=== PATIENT | male | born 1950 ===

== ENCOUNTER 2017-10-25 11:26 | Inpatient (IN) | payer MEDICARE, OTHER ==
[2017-10-25] MEDS ORDERED: Sodium Chloride 0.9% 1,000 ML IV STA (12:14)
--- NOTE | 2017-10-25 12:14 | ED PDOC ---
HPI: Male Pain Time Seen by Provider: 10/25/17 11:44 Chief Complaint (Nursing): Back Pain Chief Complaint (Provider): Fever, unable to urinate properly History Per: Patient History/Exam Limitations: no limitations Onset/Duration Of Symptoms: Days (2) Current Symptoms Are (Timing): Still Present Quality Of Discomfort: Dull, Burning Additional Complaint(s): 67 yo male with HTN and DM presents with being unable to urinate properly and feeling feverish. PT did not take medications for fever and did not take temperature at home. PT states he feels like he has to urinate but only a few drops come out. Pt also with bilateral low back pain. Past Medical History Reviewed: Historical Data, Nursing Documentation, Vital Signs Vital Signs: Last Vital Signs Temp 100.6 F H 10/25/17 11:29 Pulse 121 H 10/25/17 11:29 Resp 16 10/25/17 11:29 BP 172/71 H 10/25/17 11:29 Pulse Ox 96 10/25/17 11:29 - Medical History PMH: Diabetes, HTN - Surgical History Surgical History: No Surg Hx - Family History Family History: States: Unknown Family Hx - Living Arrangements Living Arrangements: With Family - Social History Current smoker - smoking cessation education provided: No Alcohol: None Drugs: Denies - Home Medications Home Medications: Ambulatory Orders Medication Instructions Recorded Alendronate Sodium [Alendronate 35 mg PO TH 10/25/17 (Fosamax)] Allopurinol [Zyloprim] 200 mg PO DAILY 10/25/17 Aspirin [Ecotrin] 81 mg PO DAILY 10/25/17 Atorvastatin [Lipitor] 40 mg PO HS 10/25/17 Cholecalciferol 400 Intl Units 1 tab PO DAILY 10/25/17 [Vitamin D 400 Intl Units Tab] Econazole 1% [Spectazole Cr] 1 appl TOP BID 10/25/17 Ergocalciferol (Vitamin D2) 50,000 unit PO Q28D 10/25/17 [Vitamin D2] Furosemide [Lasix] 20 mg PO MWF 10/25/17 Insulin Glargine, Recombina 60 unit SC HS 10/25/17 [Lantus] Insulin Lispro Mix 75/25 [HumaLOG 60 unit SC QPM 10/25/17 Mix 75/25] Insulin Lispro Mix 75/25 [HumaLOG 70 unit SC QAM 10/25/17 Mix 75/25] Linagliptin [Tradjenta] 5 mg PO DAILY 10/25/17 Losartan/Hydrochlorothiazide 1 tab PO DAILY 10/25/17 [Hyzaar 100-25 Tablet] Paricalcitol [Zemplar] 1 mcg PO MWF 10/25/17 Sevelamer Carbonate [Renvela] 800 mg PO DIN 10/25/17 Sodium Bicarbonate Tab [Sodium 650 mg PO DAILY 10/25/17 Bicarbonate Tab] Tamsulosin [Flomax] 0.4 mg PO DAILY 10/25/17 Travoprost [Travatan Z] 1 drop EACHEYE HS 10/25/17 - Allergies Allergies/Adverse Reactions: Allergies Allergy/AdvReac Type Severity Reaction Status Date / Time No Known Allergies Allergy Verified 03/10/14 14:17 Review of Systems ROS Statement: Except As Marked, All Systems Reviewed And Found Negative Constitutional: Positive for: Fever, Chills, Malaise Gastrointestinal: Negative for: Nausea, Vomiting, Abdominal Pain Genitourinary Male: Positive for: Dysuria, Other Musculoskeletal: Positive for: Back Pain (Lower) Physical Exam - Reviewed Nursing Documentation Reviewed: Yes Vital Signs Reviewed: Yes - Physical Exam Appears: Positive for: Well, Non-toxic, No Acute Distress Head Exam: Positive for: ATRAUMATIC, NORMAL INSPECTION, NORMOCEPHALIC Skin: Positive for: Normal Color, Warm, DRY Eye Exam: Positive for: Normal appearance ENT: Positive for: Normal ENT Inspection Neck: Positive for: Normal, Painless ROM Cardiovascular/Chest: Positive for: Regular Rate, Rhythm Respiratory: Positive for: Normal Breath Sounds. Negative for: Accessory Muscle Use, Respiratory Distress Gastrointestinal/Abdominal: Positive for: Normal Exam, Soft. Negative for: Tenderness Back: Positive for: Normal Inspection. Negative for: L CVA Tenderness, R CVA Tenderness Extremity: Positive for: Normal ROM Neurologic/Psych: Positive for: Alert, Oriented - Laboratory Results Result Diagrams: 10/25/17 12:40 10/25/17 12:40 - ECG O2 Sat by Pulse Oximetry: 96 Medical Decision Making Medical Decision Making: Elevated wbc, elevated lactate. (+) UTI Case discussed with Dr. Murillo. Disposition - Clinical Impression Clinical Impression: UTI (urinary tract infection) - Patient ED Disposition Is Patient to be Admitted: Yes - Disposition Disposition Time: 13:23 Condition: STABLE
[2017-10-25 12:48] LABS: VENOUS BLOOD GAS PCO2 35 mmHg (40-60); VENOUS BLOOD GAS PO2 48 mm/Hg (30-55); VENOUS BLOOD PH 7.44 (7.32-7.43)
[2017-10-25 12:55] LABS: BASO % 0.2 % (0.0-2.0); EOS % 0.1 % (0.0-4.0); HEMOGLOBIN 11.7 g/dL (12.0-18.0); LYMPH # 1.1 K/uL (1.0-4.3); LYMPH % 5.4 % (20.0-40.0); MEAN CORPUSCULAR HEMOGLOBIN 31.6 pg (27.0-31.0); MEAN CORPUSCULAR HGB CONC 33.7 g/dL (33.0-37.0); MEAN PLATELET VOLUME 11.3 fl (7.2-11.7); MONO # 1.2 K/uL (0.0-0.8); MONO % 6.1 % (0.0-10.0); NEUT # 17.4 K/uL (1.8-7.0); NEUT % 88.2 % (50.0-75.0); PLATELET COUNT 149 K/uL (130-400); RBC 3.71 Mil/uL (4.40-5.90); RED CELL DISTRIBUTION WIDTH 14.1 % (11.5-14.5); WHITE BLOOD COUNT 19.7 K/uL (4.8-10.8)
[2017-10-25 12:58] LABS: SQUAMOUS EPITHIAL < 1 /hpf (0-5); URINE BACTERIA MOD (<OCC); URINE BILIRUBIN NEGATIVE (NEGATIVE); URINE BLOOD SMALL (NEGATIVE); URINE CLARITY CLEAR (Clear); URINE COLOR YELLOW (YELLOW); URINE GLUCOSE (UA) >=500 mg/dL (Normal); URINE LEUKOCYTE ESTERASE SMALL Leu/uL (Negative); URINE PROTEIN 100 mg/dL (NEGATIVE); URINE UROBILINOGEN 0.2-1.0 mg/dL (0.2-1.0)
[2017-10-25 13:14] LABS: ALBUMIN 3.8 g/dL (3.5-5.0); CALCIUM 8.7 mg/dL (8.4-10.2)
[2017-10-25] MEDS ORDERED: cefTRIAXone (Rocephin) 1 gm Inj ONE (13:26)
[2017-10-25] MEDS ORDERED: Oxycodone/Acetaminophen 5/325 mg Tab PO PRN (15:04)
[2017-10-25 15:16] LABS: LYMPHOCYTE 6 % (20-50); MONOCYTE 7 % (0-10); NEUTROPHIL 87 % (42-75); PLATELET ESTIMATE SLIGHTLY DECREASED (NORMAL); TOTAL CELLS COUNTED 100
[2017-10-25 15:17] LABS: ANISOCYTOSIS SLIGHT; LARGE PLATELETS PRESENT; OVALOCYTES SLIGHT; TEARDROP CELLS SLIGHT
[2017-10-25] MEDS ORDERED: Glucagon Recombinant 1 mg Inj IM PRN (15:19)
[2017-10-25] MEDS ORDERED: Dextrose 50% SYRINGE Inj (50 ml) IV PRN (15:19)
--- NOTE | 2017-10-25 16:52 | RAD ---
HISTORY: back pain, fever COMPARISON: No prior. TECHNIQUE: Chest PA and lateral FINDINGS: LUNGS: Small right lower lobe infiltrate versus fibrosis. PLEURA: No significant pleural effusion identified. No pneumothorax apparent. CARDIOVASCULAR: Normal. OSSEOUS STRUCTURES: No significant abnormalities. VISUALIZED UPPER ABDOMEN: Normal. OTHER FINDINGS: None. IMPRESSION: Small right lower lobe infiltrate versus fibrosis.
[2017-10-25] MEDS: Insulin Lispro (humaLOG) 100 Units/ml Inj SC SCH ×2 (18:28→21:51)
[2017-10-25] MEDS: Sodium Chloride 0.9% 1,000 ML IV SCH (18:59)
[2017-10-25] MEDS: Insulin Detemir 100 Units/ml Inj SC SCH (21:59)
[2017-10-26] MEDS: Sodium Chloride 0.9% 1,000 ML IV SCH ×3 (03:14→16:03)
[2017-10-26] MEDS: Insulin Lispro (humaLOG) 100 Units/ml Inj SC SCH ×4 (07:11→22:00)
[2017-10-26] MEDS: Enoxaparin 40 mg Syringe SC SCH (08:59)
[2017-10-26] MEDS ORDERED: Patient's Own Med (Losartan/Hydrochlorothiazide [Hyzaar 100-25 Tablet] 1 TAB) PO SCH (09:00)
--- NOTE | 2017-10-26 12:52 | HP ---
CHIEF COMPLAINT: Abdominal, back pain and difficulty urination. HISTORY OF PRESENT ILLNESS: This is a 67-year-old male known case of diabetes and hypertension, who was having abdominal pain, back pain, and difficulty urination for few days, so the patient was brought to the emergency room and was admitted for further management. REVIEW OF SYSTEMS: Positive for fever, difficulty urination, back pain, and abdominal pain. Review of systems otherwise is negative for headache, dizziness, syncope, loss of consciousness, chest pain, shortness of breath, nausea, vomiting, diarrhea, constipation, any new joint or extremity pain. Review of systems of all other organ system is unremarkable. PAST MEDICAL HISTORY: Significant for hypertension and diabetes. PAST SURGICAL HISTORY: Unremarkable. PERSONAL HISTORY: The patient is currently nonsmoker, nondrinker. No substance abuse. MEDICATIONS: The patient is on multiple medications, which is as per reconciliation sheet, which was reviewed and ordered. ALLERGIES: THE PATIENT IS NOT ALLERGIC TO ANY MEDICATIONS. FAMILY HISTORY: Noncontributory. PHYSICAL EXAMINATION: GENERAL: A well-built and well-nourished overweight 67-year-old male, in no acute distress. VITAL SIGNS: Temperature 99.1, the patient had very high fever before, pulse 99, respirations 20, blood pressure 148/80, and saturations 96%. HEENT: Pupils are reactive to light. No JVD. No thyromegaly. No lymphadenopathy. No nystagmus. Normocephalic and atraumatic skull. HEART: S1 and S2, normal and regular. No significant murmur, gallop or rub is heard. LUNGS: Shows good bilateral air exchange. No rales or rhonchi. ABDOMEN: Soft and nontender. No organomegaly. No fluid. Bowel sounds are plus and normal. The patient . EXTREMITIES: No edema. No calf swelling. No tenderness. No acute ischemia. CENTRAL NERVOUS SYSTEM: The patient is alert, awake, and oriented x3. There is no sign of any acute gross focal motor or sensory neurological deficits. DIAGNOSTIC DATA: Available diagnostic data reviewed. WBC 19.7, hemoglobin , hematocrit 34.9, and platelets 149,000. Lactic acid level is 2.3. Sodium 132, potassium 4.7, chloride 96, bicarb 18, BUN 29, and creatinine 1.5. SMA-12 otherwise is unremarkable. Blood sugars are very high 314, 250, 325, and 284. Chest x-ray is clear. ADMITTING IMPRESSION: Sepsis, type 2 diabetes with hyperglycemia, hypertension, obesity with body mass of index of 30, and urinary tract infection. PLAN: Plan as ordered. Case and plan discussed with the patient. Antoni Murillo MD
[2017-10-26] MEDS: Insulin Detemir 100 Units/ml Inj SC SCH (21:58)
[2017-10-27 08:18] VITALS: RESP 20
[2017-10-27] MEDS: Insulin Lispro (humaLOG) 100 Units/ml Inj SC SCH ×4 (08:21→21:54)
[2017-10-27] MEDS: Enoxaparin 40 mg Syringe SC SCH (08:32)
[2017-10-27] MEDS: Insulin Detemir 100 Units/ml Inj SC SCH ×2 (08:39→21:54)
[2017-10-27] MEDS: Ciprofloxacin 400mg/200ml D5W 400 MG/200 ML BAG IVPB SCH (21:53)
[2017-10-28 06:52] LABS: HEMOGLOBIN 11.1 g/dL (12.0-18.0); MEAN CELL VOLUME 92.3 fl (80.0-94.0); MEAN CORPUSCULAR HEMOGLOBIN 31.9 pg (27.0-31.0); MEAN CORPUSCULAR HGB CONC 34.6 g/dL (33.0-37.0); RBC 3.46 Mil/uL (4.40-5.90); RED CELL DISTRIBUTION WIDTH 13.6 % (11.5-14.5); WHITE BLOOD COUNT 7.7 K/uL (4.8-10.8)
--- NOTE | 2017-10-28 07:08 | CARD ---
APPROVED REPORT EKG Measurement Heart [id number] <Conclusion> Normal sinus rhythm Possible Left atrial enlargement Nonspecific T wave abnormality Abnormal ECG
[2017-10-28 07:44] VITALS: BP 139/76; PULSE 84; TEMP 98.4; O2SAT 98
[2017-10-28] MEDS ORDERED: Insulin Detemir 100 Units/ml Inj SC SCH ×2 (07:45→08:44)
[2017-10-28 08:12] LABS: ALB/GLOB RATIO 0.8 (1.0-2.1); ALBUMIN 3.2 g/dL (3.5-5.0); CALCIUM 8.4 mg/dL (8.4-10.2)
[2017-10-28] MEDS: Ciprofloxacin 400mg/200ml D5W 400 MG/200 ML BAG IVPB SCH (08:18)
[2017-10-28] MEDS: Enoxaparin 40 mg Syringe SC SCH (08:25)
[2017-10-28] MEDS: Insulin Lispro (humaLOG) 100 Units/ml Inj SC SCH (08:28)
--- NOTE | 2017-10-28 08:50 | PN ---
DATE: 10/27/2017 SUBJECTIVE: The patient is seen and examined. Interim events noted. The patient had high fever overnight. Currently, the patient feels okay. Denies any chest pain, shortness of breath or any urinary symptoms. Does have some back pain. PHYSICAL EXAMINATION: GENERAL: The patient is in no acute distress. VITAL SIGNS: Stable. HEART: S1 and S2, normal and regular. LUNGS: Good bilateral air exchange. ABDOMEN: Soft and nontender. EXTREMITIES: No edema. No calf swelling. No tenderness. No acute ischemia. CENTRAL NERVOUS SYSTEM: Essentially unchanged. BACK: Does not reveal any costovertebral angle tenderness. DIAGNOSTIC DATA: Available diagnostic data reviewed. The patient did have high fever of more than 101 overnight. Urine culture is positive, but ID and sensitivity is still pending. PLAN: Overall, the patient's general medical condition is stable, still febrile with urinary tract infection. Plan as ordered. Antoni Murillo MD
--- NOTE | 2017-10-28 14:15 | PN ---
DATE: 10/28/2017 SUBJECTIVE: The patient is seen and examined. Interim events noted. The patient feels much better. No chest pain. No shortness of breath. No abdominal pain. No urinary symptoms. PHYSICAL EXAMINATION: GENERAL: The patient is in no acute distress. VITAL SIGNS: Stable. HEART: S1 and S2, normal and regular. LUNGS: Good bilateral air exchange. ABDOMEN: Soft and nontender. EXTREMITIES: No edema. No calf swelling. No tenderness. No acute ischemia. CENTRAL NERVOUS SYSTEM: Exam is essentially unchanged. DIAGNOSTIC DATA: Available diagnostic data reviewed. Urine culture is positive and sensitive to . ASSESSMENT AND PLAN: Overall, the patient is clinically stable. Plan as ordered. Antoni Murillo MD
--- NOTE | 2017-10-28 23:20 | DS ---
HISTORY OF PRESENT ILLNESS: This is a 67-year-old male who was admitted with and was found to have urinary tract infection and sepsis and was treated with IV antibiotics. The patient responded to treatment very well. Urine culture showed sensitivity to Cipro. The patient was switched to oral antibiotics and was discharged home to be followed up by the primary care physician. Antoni Murillo MD
== END 2017-10-28 12:40 | disposition home or self-care (01) | DRG 872 ==
LOC: H.ER 11:26 → H.ERHOLD 13:30 → H.MEDSURG1 16:43
PROVIDERS: ADMIT Internal Medicine; ATTEND Internal Medicine
DX: A41.9 Sepsis, unspecified organism (principal); N39.0 Urinary tract infection, site not specified; E11.65 Type 2 diabetes mellitus with hyperglycemia; E66.9 Obesity, unspecified; Z68.30 Body mass index [BMI] 30.0-30.9, adult; I10 Essential (primary) hypertension

== ENCOUNTER 2018-06-23 12:31 | Emergency (ER) | payer MEDICARE, OTHER ==
[2018-06-23 12:50] VITALS: O2SAT 99
[2018-06-23] MEDS ORDERED: Albuterol-Ipratrop 3 mg / 0.5 (3 ml) UD IH STA (13:32)
--- NOTE | 2018-06-23 13:38 | ED PDOC ---
HPI: General Adult Time Seen by Provider: 06/23/18 13:24 Chief Complaint (Nursing): Cough, Cold, Congestion Chief Complaint (Provider): Cough, Cold, Congestion History Per: Patient History/Exam Limitations: no limitations Onset/Duration Of Symptoms: Days (x10) Current Symptoms Are (Timing): Still Present Additional Complaint(s): 68 year old male with a past medical history of diabetes who is presenting to the ED for evaluation of productive cough with yellow sputum onset 10 days ago. Patient denies any chest pain, fevers, or shortness of breath. He offers no other medical complaints at this time. PMD: Kian Rhodes Past Medical History Reviewed: Historical Data, Nursing Documentation, Vital Signs Vital Signs: Last Vital Signs Temp 98.8 F 06/23/18 12:47 Pulse 114 H 06/23/18 12:47 Resp 18 06/23/18 12:47 BP 131/64 06/23/18 12:47 Pulse Ox 99 06/23/18 12:47 - Medical History PMH: Diabetes, HTN Denies: Chronic Kidney Disease - Surgical History Surgical History: Hernia Repair - Family History Family History: States: Unknown Family Hx - Social History Current smoker - smoking cessation education provided: No Ex-Smoker (has not smoked in the last 12 months): Yes Alcohol: None Drugs: Denies - Home Medications Home Medications: Ambulatory Orders Medication Instructions Recorded Alendronate Sodium [Alendronate 35 mg PO TH 10/25/17 (Fosamax)] Allopurinol [Zyloprim] 200 mg PO DAILY 10/25/17 Aspirin [Ecotrin] 81 mg PO DAILY 10/25/17 Atorvastatin [Lipitor] 40 mg PO 10/25/17 Cholecalciferol 400 Intl Units 1 tab PO DAILY 10/25/17 [Vitamin D 400 Intl Units Tab] Econazole 1% [Spectazole Cr] 1 appl TOP BID 10/25/17 Ergocalciferol (Vitamin D2) 50,000 unit PO Q28D 10/25/17 [Vitamin D2] Furosemide [Lasix] 20 mg PO MWF 10/25/17 Insulin Glargine, Recombina 60 unit SC HS 10/25/17 [Lantus] Insulin Lispro Mix 75/25 [HumaLOG 60 unit SC QPM 10/25/17 Mix 75/25] Insulin Lispro Mix 75/25 [HumaLOG 70 unit SC QAM 10/25/17 Mix 75/25] Linagliptin [Tradjenta] 5 mg PO DAILY 10/25/17 Losartan/Hydrochlorothiazide 1 tab PO DAILY 10/25/17 [Hyzaar 100-25 Tablet] Paricalcitol [Zemplar] 1 mcg PO MWF 10/25/17 Sevelamer Carbonate [Renvela] 800 mg PO DIN 10/25/17 Sodium Bicarbonate Tab 650 mg PO DAILY 10/25/17 Tamsulosin [Flomax] 0.4 mg PO DAILY 10/25/17 Travoprost [Travatan Z] 1 drop EACHEYE HS 10/25/17 Ciprofloxacin HCl [Cipro] 500 mg PO Q12 #14 tablet 10/28/17 Albuterol HFA [Ventolin HFA 90 2 puff IH Q4H #1 puff 06/23/18 mcg/actuation (8 g)] Azithromycin [Zithromax] 250 mg PO DAILY #6 tab 06/23/18 Benzonatate [Tessalon Perle] 100 mg PO Q8 #10 capsule 06/23/18 - Allergies Allergies/Adverse Reactions: Allergies Allergy/AdvReac Type Severity Reaction Status Date / Time No Known Allergies Allergy Verified 03/10/14 14:17 Review of Systems ROS Statement: Except As Marked, All Systems Reviewed And Found Negative Constitutional: Negative for: Fever Cardiovascular: Negative for: Chest Pain Respiratory: Positive for: Cough, Sputum (yellow). Negative for: Shortness of Breath Physical Exam - Reviewed Nursing Documentation Reviewed: Yes Vital Signs Reviewed: Yes - Physical Exam Appears: Positive for: Non-toxic, No Acute Distress Head Exam: Positive for: ATRAUMATIC, NORMAL INSPECTION, NORMOCEPHALIC Skin: Positive for: Normal Color, Warm Eye Exam: Positive for: EOMI, Normal appearance, PERRL ENT: Positive for: Normal ENT Inspection Neck: Positive for: Normal Cardiovascular/Chest: Negative for: Murmur Respiratory: Positive for: Rhonchi (scattered), Wheezing (bilateral expiratory wheezing ), Respiratory Distress (mild ) Gastrointestinal/Abdominal: Positive for: Normal Exam, Soft. Negative for: Tenderness Extremity: Positive for: Normal ROM. Negative for: Deformity, Swelling Neurologic/Psych: Positive for: Alert, Oriented. Negative for: Motor/Sensory Deficits - ECG O2 Sat by Pulse Oximetry: 99 (RA) Pulse Ox Interpretation: Normal Medical Decision Making Medical Decision Making: Time: 13:33 Impression: rule out pneumonia, rule out bronchitis Plan: --Chest x-ray --Duoneb 3 ml INH --Peak Flow Pre/Post Tx Scribe Attestation: Documented by Ria Arellano, acting as a scribe for Rodney Oconnor MD. Provider Scribe Attestation: All medical record entries made by the Scribe were at my direction and personally dictated by me. I have reviewed the chart and agree that the record accurately reflects my personal performance of the history, physical exam, medical decision making, and the department course for this patient. I have also personally directed, reviewed, and agree with the discharge instructions and disposition. Disposition - Clinical Impression Clinical Impression: Bronchitis - Patient ED Disposition Is Patient to be Admitted: No Counseled Patient/Family Regarding: Studies Performed, Diagnosis, Need For Followup, Rx Given - Disposition Referrals: Kian Rhodes MD [Family Provider] - Disposition: Routine/Home Disposition Time: 15:36 Condition: FAIR Prescriptions: Albuterol HFA [Ventolin HFA 90 mcg/actuation (8 g)] 2 puff IH Q4H #1 puff Azithromycin [Zithromax] 250 mg PO DAILY #6 tab Benzonatate [Tessalon Perle] 100 mg PO Q8 #10 capsule Instructions: Acute Bronchitis Forms: [employer] (Iranian) Print Language: LIBERIAN
--- NOTE | 2018-06-23 14:13 | RAD ---
Date of service: 06/23/2018 HISTORY: Cough COMPARISON: 10/25/2017. TECHNIQUE: Chest PA and lateral FINDINGS: LINES AND TUBES: None. LUNG AND PLEURA: The lungs are hyperinflated and there is peribronchial thickening with chronic changes in both lungs. There is linear scarring in the left lung base no focal consolidation. No pleural effusion or pneumothorax. HEART AND MEDIASTINUM: The heart is not enlarged. No aortic atherosclerotic calcifications present. The hilar and mediastinal contours are within normal limits. SKELETAL STRUCTURES: The bony structures are within normal limits for the patient's age. VISUALIZED UPPER ABDOMEN: Normal. OTHER FINDINGS: None. IMPRESSION: No active pulmonary disease. COPD.
[2018-06-23 15:58] VITALS: BP 127/78; PULSE 79; RESP 19; TEMP 97.7
== END 2018-06-23 16:00 | disposition home or self-care (01) ==
LOC: H.ER 12:31
DX: J44.9 Chronic obstructive pulmonary disease, unspecified (principal); E11.9 Type 2 diabetes mellitus without complications; I10 Essential (primary) hypertension; Z79.4 Long term (current) use of insulin; Z87.891 Personal history of nicotine dependence

== ENCOUNTER 2018-08-05 17:04 | Observation (INO) | payer OTHER ==
[2018-08-05] MEDS ORDERED: Sodium Chloride 0.9% 1,000 ML IV STA (17:43)
[2018-08-05 18:32] LABS: BASO % 0.3 % (0.0-2.0); EOS # 0.1 K/uL (0.0-0.7); EOS % 2.5 % (0.0-4.0); HEMOGLOBIN 11.9 g/dL (12.0-18.0); LYMPH # 2.7 K/uL (1.0-4.3); LYMPH % 45.2 % (20.0-40.0); MEAN CELL VOLUME 95.3 fl (80.0-94.0); MEAN CORPUSCULAR HEMOGLOBIN 31.4 pg (27.0-31.0); MEAN PLATELET VOLUME 10.9 fl (7.2-11.7); MONO # 0.3 K/uL (0.0-0.8); MONO % 5.5 % (0.0-10.0); NEUT # 2.8 K/uL (1.8-7.0); NEUT % 46.5 % (50.0-75.0); NRBC % 0.1 % (0.0-0.0); RBC 3.79 Mil/uL (4.40-5.90); RED CELL DISTRIBUTION WIDTH 14.2 % (11.5-14.5); WHITE BLOOD COUNT 5.9 K/uL (4.8-10.8)
--- NOTE | 2018-08-05 18:34 | ED PDOC ---
Syncope/Near Syncope/Dizziness Time Seen by Provider: 08/05/18 17:29 Chief Complaint (Nursing): Syncope Chief Complaint (Provider): Syncope History Per: Patient History/Exam Limitations: no limitations Onset/Duration Of Symptoms: Unknown Current Symptoms Are (Timing): Better Additional History Per: Family (son) Additional Complaint(s): 68 year old male with PMHx of HTN and diabetes presents to the ED for an evaluation of syncopal episode today at the eye doctors office. As per son, patient was in the process of being injected in the vein to test for bleeding from the eye and patient fainted on the chair without any fall. Patient was unre sponsive and urinated. Patient is unsure of how long he passed out for and currently reports of nausea, blurry vision and weakness. Also reports of shortness of breath when walking and swollen feet. Otherwise, patient denies fever, chills, chest pain, cough, vomiting, abdominal pain, diarrhea, dysuria, frequency, incontinence, hematuria, headache, dizziness, head injury, numbness or tingling. PMD: Kian Rhodes Past Medical History Reviewed: Historical Data, Nursing Documentation, Vital Signs Vital Signs: Last Vital Signs Temp 98.0 F 08/05/18 17:06 Pulse 99 H 08/05/18 17:06 Resp 16 08/05/18 17:06 BP 145/66 08/05/18 17:06 Pulse Ox 100 08/05/18 17:06 - Medical History PMH: Diabetes, HTN Denies: Chronic Kidney Disease - Surgical History Surgical History: Hernia Repair - Family History Family History: States: Unknown Family Hx - Social History Current smoker - smoking cessation education provided: No Ex-Smoker (has not smoked in the last 12 months): No Drugs: Denies - Home Medications Home Medications: Ambulatory Orders Medication Instructions Recorded Alendronate Sodium [Alendronate 35 mg PO TH 10/25/17 (Fosamax)] Allopurinol [Zyloprim] 200 mg PO DAILY 10/25/17 Aspirin [Ecotrin] 81 mg PO DAILY 10/25/17 Atorvastatin [Lipitor] 40 mg PO HS 10/25/17 Cholecalciferol 400 Intl Units 1 tab PO DAILY 10/25/17 [Vitamin D 400 Intl Units Tab] Econazole 1% [Spectazole Cr] 1 appl TOP BID 10/25/17 Ergocalciferol (Vitamin D2) 50,000 unit PO Q28D 10/25/17 [Vitamin D2] Furosemide [Lasix] 20 mg PO MWF 10/25/17 Insulin Glargine, Recombina 60 unit SC HS 10/25/17 [Lantus] Insulin Lispro Mix 75/25 [HumaLOG 60 unit SC QPM 10/25/17 Mix 75/25] Insulin Lispro Mix 75/25 [HumaLOG 70 unit SC QAM 10/25/17 Mix 75/25] Linagliptin [Tradjenta] 5 mg PO DAILY 10/25/17 Losartan/Hydrochlorothiazide 1 tab PO DAILY 10/25/17 [Hyzaar 100-25 Tablet] Paricalcitol [Zemplar] 1 mcg PO MWF 10/25/17 Sevelamer Carbonate [Renvela] 800 mg PO DIN 10/25/17 Sodium Bicarbonate Tab 650 mg PO DAILY 10/25/17 Tamsulosin [Flomax] 0.4 mg PO DAILY 10/25/17 Travoprost [Travatan Z] 1 drop EACHEYE 10/25/17 Ciprofloxacin HCl [Cipro] 500 mg PO Q12 #14 tablet 10/28/17 Albuterol HFA [Ventolin HFA 90 2 puff IH Q4H #1 puff 06/23/18 mcg/actuation (8 g)] Azithromycin [Zithromax] 250 mg PO DAILY #6 tab 06/23/18 Benzonatate [Tessalon Perle] 100 mg PO Q8 #10 capsule 06/23/18 - Allergies Allergies/Adverse Reactions: Allergies Allergy/AdvReac Type Severity Reaction Status Date / Time No Known Allergies Allergy Verified 03/10/14 14:17 Review of Systems ROS Statement: Except As Marked, All Systems Reviewed And Found Negative Constitutional: Negative for: Fever, Chills Eyes: Positive for: Vision Change Cardiovascular: Negative for: Chest Pain Respiratory: Positive for: Shortness of Breath. Negative for: Cough Gastrointestinal: Positive for: Nausea. Negative for: Vomiting, Abdominal Pain, Diarrhea Genitourinary Male: Negative for: Dysuria, Frequency, Incontinence, Hematuria Neurological: Positive for: Weakness. Negative for: Numbness, Headache, Dizziness, Other (head injury) Physical Exam - Reviewed Nursing Documentation Reviewed: Yes Vital Signs Reviewed: Yes - Physical Exam Appears: Positive for: Non-toxic, No Acute Distress Head Exam: Positive for: ATRAUMATIC, NORMAL INSPECTION, NORMOCEPHALIC Skin: Positive for: Normal Color, Warm, Dry. Negative for: Rash Eye Exam: Positive for: EOMI, Normal appearance, PERRL ENT: Positive for: Normal ENT Inspection Neck: Positive for: Normal, Painless ROM Cardiovascular/Chest: Positive for: Regular Rate, Rhythm. Negative for: Murmur Respiratory: Positive for: Normal Breath Sounds. Negative for: Decreased Breath Sounds, Respiratory Distress Gastrointestinal/Abdominal: Positive for: Normal Exam, Soft. Negative for: Tend erness, Guarding, Rebound Back: Positive for: Normal Inspection. Negative for: L CVA Tenderness, R CVA Tenderness Extremity: Positive for: Normal ROM. Negative for: Tenderness, Pedal Edema, Deformity Neurologic/Psych: Positive for: Alert, Oriented (x3). Negative for: Motor/Sensory Deficits - Laboratory Results Result Diagrams: 08/05/18 18:18 08/05/18 18:18 - ECG O2 Sat by Pulse Oximetry: 100 (RA) Pulse Ox Interpretation: Normal - Radiology X-Ray: Interpreted by Me, Viewed By Me X-Ray Interpretation: No Acute Disease - Progress ED Course And Treament: 185: Dr. Mcdermott to fu on labs and imaging. Here with syncope. Medical Decision Making Medical Decision Making: Time: 1741 Plan: --Head w/o contrast CT --EKG --B-type natriuretic peptide --CMP --PTT --Prothrombin time [COAG] --Chest portable [RAD] --Normal saline 1000 mls/hr --Orthostatic Blood Pressure --Reevaluation Scribe Attestation: Documented by Raj Bernal acting as a scribe for Marty Barragan MD Provider Attestation: All medical record entries made by the Scribe were at my direction and per sonally dictated by me. I have reviewed the chart and agree that the record accurately reflects my personal performance of the history, physical exam, medical decision making, and the department course for this patient. I have also personally directed, reviewed, and agree with the discharge instructions and disposition. Disposition - Clinical Impression Clinical Impression: Syncope - Patient ED Disposition Is Patient to be Admitted: Transfer of Care - Disposition Disposition: Transfer of Care Disposition Time: 18:57 Condition: STABLE Forms: [employer] (Serbian) Patient Signed Over To: Sonido Mcdermott
[2018-08-05 18:39] LABS: PROTHROMBIN TIME 11.2 Seconds (9.8-13.1)
[2018-08-05 18:42] LABS: ALB/GLOB RATIO 0.9 (1.0-2.1); ALBUMIN 3.9 g/dL (3.5-5.0); BLOOD UREA NITROGEN 34 mg/dl (9-20); CALCIUM 9.5 mg/dL (8.4-10.2); GFR NON-AFRICAN AMERICAN 43
[2018-08-05 18:56] LABS: B-TYPE NATRIURETIC PEPTIDE 49.3 pg/ml (0-900)
--- NOTE | 2018-08-05 19:03 | CT ---
Date of service: 08/05/2018 PROCEDURE: CT HEAD WITHOUT CONTRAST. HISTORY: Headache COMPARISON: None available. TECHNIQUE: Axial computed tomography images were obtained through the head/brain without intravenous contrast. Radiation dose: Total exam DLP = 815.25 mGy-cm. This CT exam was performed using one or more of the following dose reduction techniques: Automated exposure control, adjustment of the mA and/or kV according to patient size, and/or use of iterative reconstruction technique. FINDINGS: HEMORRHAGE: No acute parenchymal, subarachnoid or extra-axial hemorrhage BRAIN: Suspect minimal chronic periventricular white matter ischemic changes. There are ill-defined low-attenuation changes seen in the subcortical white matter left posterior temporoparietal region.. These changes likely chronic however clinical correlation recommended to determine whether additional imaging such as MRI should is required. Mild to moderate generalized volume loss. VENTRICLES: No obstructive hydrocephalus CALVARIUM: Calvarium intact. PARANASAL SINUSES: Frontal sinuses are atretic. Remaining visualized paranasal sinuses are well-developed and clear. MASTOID AIR CELLS: Questionable fluid levels or mucoperiosteal inflammatory changes noted within multiple left-sided mastoid air cells. OTHER FINDINGS: Changes of bilateral cataract surgery are present. IMPRESSION: Suspect minimal chronic periventricular white matter ischemic changes. There are ill-defined low-attenuation changes seen in the subcortical white matter left posterior temporoparietal region.. These changes likely chronic however clinical correlation recommended to determine whether additional imaging such as MRI should is required. Mild to moderate generalized volume loss. Questionable fluid levels or mucoperiosteal inflammatory changes noted within multiple left-sided mastoid air cells.
--- NOTE | 2018-08-05 19:09 | ED PDOC ---
- Laboratory Results Result Diagrams: 08/05/18 18:18 08/05/18 18:18 Lab Results: PT 11.2 Seconds (9.8-13.1) 08/05/18 18:18 INR 1.0 08/05/18 18:18 APTT 28.0 Seconds (25.6-37.1) 08/05/18 18:18 Troponin I < 0.0120 ng/mL (0.00-0.120) 08/05/18 18:18 NT-Pro-B Natriuret Pep 49.3 pg/ml (0-900) 08/05/18 18:18 Total Bilirubin 0.5 mg/dl (0.2-1.3) 08/05/18 18:18 Total Protein 8.1 G/DL (6.3-8.2) 08/05/18 18:18 Albumin 3.9 g/dL (3.5-5.0) 08/05/18 18:18 Globulin 4.2 gm/dL (2.2-3.9) H 08/05/18 18:18 Albumin/Globulin Ratio 0.9 (1.0-2.1) L 08/05/18 18:18 - ECG O2 Sat by Pulse Oximetry: 100 (RA) Pulse Ox Interpretation: Normal Medical Decision Making Medical Decision Making: Time: 0700 Patient endorsed to me by Dr. Barragan pending CT scan and disposition. Scribe Attestation: Documented by Raj Bernal acting as a scribe for Sonido Mcdermott MD. Provider Attestation: All medical record entries made by the Scribe were at my direction and personally dictated by me. I have reviewed the chart and agree that the record accurately reflects my personal performance of the history, physical exam, medical decision making, and the department course for this patient. I have also personally directed, reviewed, and agree with the discharge instructions and disposition. Disposition - Clinical Impression Clinical Impression: Syncope - Disposition Condition: STABLE Forms: [employer] (Somali)
[2018-08-05 19:26] LABS: ALT/SGPT 63 U/L (21-72); AST/SGOT 53 U/L (17-59)
--- NOTE | 2018-08-05 19:30 | ED PDOC ---
- Laboratory Results Result Diagrams: 08/05/18 18:18 08/05/18 18:18 Lab Results: PT 11.2 Seconds (9.8-13.1) 08/05/18 18:18 INR 1.0 08/05/18 18:18 APTT 28.0 Seconds (25.6-37.1) 08/05/18 18:18 Troponin I < 0.0120 ng/mL (0.00-0.120) 08/05/18 18:18 NT-Pro-B Natriuret Pep 49.3 pg/ml (0-900) 08/05/18 18:18 Total Bilirubin 0.5 mg/dl (0.2-1.3) 08/05/18 18:18 AST 53 U/L (17-59) 08/05/18 18:18 ALT 63 U/L (21-72) 08/05/18 18:18 Alkaline Phosphatase 55 U/L (38-126) 08/05/18 18:18 Total Protein 8.1 G/DL (6.3-8.2) 08/05/18 18:18 Albumin 3.9 g/dL (3.5-5.0) 08/05/18 18:18 Globulin 4.2 gm/dL (2.2-3.9) H 08/05/18 18:18 Albumin/Globulin Ratio 0.9 (1.0-2.1) L 08/05/18 18:18 - ECG O2 Sat by Pulse Oximetry: 100 (RA) Pulse Ox Interpretation: Normal Medical Decision Making Medical Decision MakinPM --Patient endorsed to me by Dr. Barragan pending bloodwork and CT 715PM (Certified ob gyn physician assistant Lydia Altman was used for interpretation) --CT shows chronic changes --Patient re-evaluated, states he's feeling well, appears well, vitals stable, slight tachycardia at 100 bpm --Labs indicative of dehydration, patient being hydrated with normal saline currently --Case discussed with Dr. Rajput who accepts admission for OBS Tele --Condition: Fair Disposition - Clinical Impression Clinical Impression: Syncope - POA Present On Arrival: None - Disposition Disposition: Hospitalized as Observation Patient Disposition Time: 19:15 Condition: FAIR Forms: [employer] (Faroese)
[2018-08-05] MEDS ORDERED: Ergocalciferol 50,000 Intl Units Cap PO SCH (22:30)
[2018-08-05] MEDS: Insulin Detemir 100 Units/ml Inj SC SCH (23:26)
[2018-08-05] MEDS: Albuterol HFA 90 mcg/actuation (8 g) IH SCH (23:28)
[2018-08-06] MEDS: Insulin Lispro Mix 75/25 100 units/ml (HumaLog) 10ml SC SCH (08:47)
[2018-08-06] MEDS: Cholecalciferol 400 Intl Units Tab PO SCH (08:51)
[2018-08-06] MEDS ORDERED: ECONAZOLE TOP SCH (09:00)
--- NOTE | 2018-08-06 10:21 | CARD ---
APPROVED REPORT Date of service: 08/05/2018 EKG Measurement Heart [id number] ID [id number] <Conclusion> Normal sinus rhythm Normal ECG
[2018-08-06] MEDS: Albuterol HFA 90 mcg/actuation (8 g) IH SCH ×3 (10:30→19:14)
--- NOTE | 2018-08-06 10:31 | CARD ---
APPROVED REPORT Date of service: 08/06/2018 EXAM: Two-dimensional and M-mode echocardiogram with Doppler and color Doppler. Other Information Quality : GoodRhythm : Tachycardia INDICATION Syncope 2D DIMENSIONS IVSd1.06 (0.7-1.1cm)LVDd4.86 (3.9-5.9cm) LVOT Diameter2.05 (1.8-2.4cm)PWd1.24 (0.7-1.1cm) IVSs1.16 (0.8-1.2cm)LVDs2.71 (2.5-4.0cm) FS (%) 44.1 %PWs1.64 (0.8-1.2cm) M-Mode DIMENSIONS Left Atrium (MM)4.00 (2.5-4.0cm)IVSd1.09 (0.7-1.1cm) Aortic Root3.00 (2.2-3.7cm)LVDd5.50 (4.0-5.6cm) Aortic Cusp Exc.1.94 (1.5-2.0cm)PWd1.06 (0.7-1.1cm) IVSs1.47 cmFS (%) 47 % LVDs2.94 (2.0-3.8cm)PWs1.97 cm Aortic Valve AoV Peak Sfujoyqm820.3cm/sAoV VTI29.5cmAO Peak GR.11mmHg LVOT Peak Iozcfgpw871.8cm/sLVOT VTI20.68cmAO Mean GR.6mmHg BILL (VMAX)1.58ii7UUD (VTI)1.27cm2 Mitral Valve MV E Wdonpqug208.2cm/sMV DECEL DRXO601psMZ A Spkeewkg782.7cm/s MV MGG21kuZ/A ratio0.8MVA (PHT)5.53cm2 TDI Lateral E' Peak V10.10cm/sMedial E' Peak V9.13cm/sE/Lateral E'12.0 E/Medial E'13.3 LEFT VENTRICLE The left ventricle is normal size. There is normal left ventricular wall thickness. The left ventricular systolic function is normal. The estimated ejection fraction is 60-65% No regional wall motion abnormalities noted.. Transmitral Doppler flow pattern is Grade I-abnormal relaxation pattern. No left ventricle thrombus noted on this study. There is no ventricular septal defect visualized. There is no left ventricular aneurysm. There is no mass noted in the left ventricle. RIGHT VENTRICLE The right ventricle is normal size. There is normal right ventricular wall thickness. The right ventricular systolic function is normal. ATRIA The left atrium is borderline dilated. The right atrium size is normal. The interatrial septum is intact with no evidence for an atrial septal defect. AORTIC VALVE The aortic valve is normal in structure. No aortic regurgitation is present. There is no aortic valvular stenosis. There is no aortic valvular vegetation. MITRAL VALVE The mitral valve is normal in structure. There is no evidence of mitral valve prolapse. There is no mitral valve stenosis. There is no mitral valve regurgitation noted. TRICUSPID VALVE The tricuspid valve is normal in structure. There is trivial tricuspid valve regurgitation noted. There is no tricuspid valve prolapse or vegetation. There is no tricuspid valve stenosis. PULMONIC VALVE The pulmonary valve is normal in structure. There is no pulmonic valvular regurgitation. There is no pulmonic valvular stenosis. GREAT VESSELS The aortic root is normal in size. The ascending aorta is normal in size. The pulmonary artery is normal. The IVC is normal in size and collapses >50% with inspiration. PERICARDIAL EFFUSION There is no pericardial effusion. There is no pleural effusion. <Conclusion> The estimated ejection fraction is 60-65% Transmitral Doppler flow pattern is Grade I-abnormal relaxation pattern. The left atrium is borderline dilated. There is trivial tricuspid valve regurgitation noted.
--- NOTE | 2018-08-06 10:58 | RAD ---
Date of service: 08/05/2018 HISTORY: syncope COMPARISON: 06/23/2018 FINDINGS: LUNGS: There is interval increased opacity perceived at the right cardiophrenic angle is unclear if this is due to summation of the abdomen and projectional effects. However is not appreciated such on the prior studies. Consider follow-up chest x-ray frontal and lateral view when patient can cooperate. PLEURA: No significant pleural effusion identified, no pneumothorax apparent. CARDIOVASCULAR: No aortic atherosclerotic calcification present. Minimal cardiomegaly. No pulmonary vascular congestion. OSSEOUS STRUCTURES: No significant abnormalities. VISUALIZED UPPER ABDOMEN: Normal. OTHER FINDINGS: None. IMPRESSION: Interval increase opacity right cardiophrenic angle of unclear clinical significance-if any. Differential considerations are summation of soft tissues and projectional effects versus right inferomedial basal consolidation (infiltrate and/or atelectasis.). Recommend follow-up frontal and lateral chest x-ray views when patient can cooperate Comments: Study marked for PA review .
--- NOTE | 2018-08-06 11:37 | US ---
Date of service: 08/06/2018 PROCEDURE: Bilateral duplex Doppler carotid arterial ultrasound examination HISTORY: syncope COMPARISON: Not available TECHNIQUE: Bilateral duplex Doppler carotid arterial ultrasound examination was performed utilizing a linear array color Doppler transducer. FINDINGS: RIGHT CAROTID ARTERY: There is no significant atheromatous plaque identified. There is mild intimal thickening in the mid and distal CCA. Peak systolic velocity measurements: CCA: 90.6 centimeters/second ICA: 107.3 ICA/CCA peak systolic velocity ratio: 1.2. There is antegrade flow demonstrated in the right vertebral artery. There is mild spectral broadening in the ICA. LEFT CAROTID ARTERY: There is mild calcified atheromatous plaque in the mid carotid artery. There is no significant atheromatous plaque in the carotid bulb or ICA. There is moderate intimal thickening in the entire left CCA. Peak systolic velocity measurements: CCA: 102.5 centimeters/second ICA: 105.1 ICA/CCA peak systolic velocity ratio: 1.0 There is antegrade flow demonstrated in the left vertebral artery. IMPRESSION: No evidence of hemodynamically significant carotid arterial stenosis bilaterally. (Less than 15 percent stenosis by NASCET criteria ).
[2018-08-06 12:03] LABS: MEAN CELL VOLUME 93.9 fl (80.0-94.0); MEAN CORPUSCULAR HEMOGLOBIN 31.7 pg (27.0-31.0); MEAN CORPUSCULAR HGB CONC 33.8 g/dL (33.0-37.0); RBC 3.8 Mil/uL (4.40-5.90); RED CELL DISTRIBUTION WIDTH 14.1 % (11.5-14.5); WHITE BLOOD COUNT 6.9 K/uL (4.8-10.8)
--- NOTE | 2018-08-06 16:11 | CP.PCM.CON ---
History of Present Illness - History of Present Illness History of Present Illness: Neurology Consultation Note: Consult requested by Dr. Rajput Mr. Nix is a 68-year-old man with a past medical history of DM, HTN, HLD, who was having tests done and was having a needle inserted, when he suddenly lost consciousness, was found to have some convulsions and had urinary incontinence. When he regained consciousness, he was not confused or lethargic and knew where he was and was oriented. There was no tongue biting noted. This has never happened to him before. Review of Systems - Constitutional Constitutional: As Per HPI - EENT Eyes: absent: As Per HPI, Blind Spots, Blurred Vision, Change in Vision, Dec reased Night Vision, Diplopia, Discharge, Dry Eye, Exophthalmos, Floaters, Irritation, Itchy Eyes, Loss of Peripheral Vision, Pain, Photophobia, Requires Corrective Lenses, Sees Flashes, Spots in Vision, Tunnel Vision, Other Visual Disturbances, Loss of Vision, Other Ears: absent: As Per HPI, Decreased Hearing, Ear Discharge, Ear Pain, Tinnitus, Abnormal Hearing, Disequilibrium, Dizziness, Other Nose/Mouth/Throat: absent: As Per HPI, Epistaxis, Nasal Congestion, Nasal Discharge, Nasal Obstruction, Nasal Trauma, Nose Pain, Post Nasal Drip, Sinus Pain, Sinus Pressure, Bleeding Gums, Change in Voice, Dental Pain, Dry Mouth, Dysphagia, Halitosis, Hoarsness, Lip Swelling, Mouth Lesions, Mouth Pain, Odynophagia, Sore Throat, Throat Swelling, Tongue Swelling, Facial Pain, Neck Pain, Neck Mass, Other - Cardiovascular Cardiovascular: absent: As Per HPI, Acrocyanosis, Chest Pain, Chest Pain at Rest, Chest Pain with Activity, Claudication, Diaphoresis, Dyspnea, Dyspnea on Exertion, Edema, Irregular Heart Rhythm, Pain Radiating to Arm/Neck/Jaw, Leg Edema, Leg Ulcers, Lightheadedness, Orthopnea, Palpitations, Paroxysmal Nocturnal Dyspnea, Pedal Edema, Radiating Pain, Rapid Heart Rate, Slow Heart Rate, Syncope, Other - Respiratory Respiratory: absent: As Per HPI, Cough, Dyspnea, Hemoptysis, Dyspnea on Exertion, Wheezing, Snoring, Stridor, Pain on Inspiration, Chest Congestion, Excessive Mucous Production, Change in Mucous Color, Pain with Coughing, Other - Gastrointestinal Gastrointestinal: absent: As Per HPI, Abdominal Pain, Belching, Bloating, Change in Bowel Habits, Change in Stool Character, Coffee Ground Emesis, Constipation, Cramping, Diarrhea, Dyspepsia, Dysphagia, Early Satiety, Excessive Flatus, Fecal Incontinence, Heartburn, Hematemesis, Hematochezia, Loose Stools, Melena, Nausea, Odynophagia, Temesmus, Vomiting, Other - Musculoskeletal Musculoskeletal: absent: As Per HPI, Abnormal Gait, Arthralgias, Atrophy, Back Pain, Deformity, Joint Swelling, Limited Range of Motion, Loss of Height, Muscle Cramps, Muscle Weakness, Myalgias, Neck Pain, Numbness, Radiating Pain into Limb, Stiffness, Tingling, Other - Neurological Neurological: absent: As Per HPI, Abnormal Gait, Abnormal Hearing, Abnormal Movements, Abnormal Speech, Behavioral Changes, Burning Sensations, Confusion, Convulsions, Disequilibrium, Dizziness, Numbness, Focal Weakness, Frequent Falls, Headaches, Lack of Coordination, Loss of Vision, Memory Loss, Paresth esias, Radicular Pain, Restless Legs, Sensory Deficit, Syncope, Tingling, Tremor, Vertigo, Weakness, Other Visual Disturbances, Other - Psychiatric Psychiatric: absent: As Per HPI, Abnormal Sleep Pattern, Anhedonia, Anxiety, Auditory Hallucinations, Behavioral Changes, Change in Appetite, Change in Libido, Confusion, Depression, Difficulty Concentrating, Hallucinations, Homicidal Ideation, Hopelessness, Irritability, Memory Loss, Mood Swings, Panic Attacks, Paranoia, Suicidal Ideation, Visual Hallucinations, Tactile Hallucinations, Other - Endocrine Endocrine: absent: As Per HPI, Change in Body Appearance, Change in Libido, Cold Intolorance, Deepening of Voice, Excessive Sweating, Fatigue, Flushing, Heat Intolorance, Increase in Ring/Shoe/Hat Size, Palpitations, Polydipsia, Polyphagia, Polyuria, Other - Hematologic/Lymphatic Hematologic: absent: As Per HPI, Easy Bleeding, Easy Bruising, Lymphadenopathy, Other Past Patient History - Past Medical History & Family History Past Medical History?: Yes - Past Social History Smoking Status: Former Smoker - CARDIAC Hx Cardiac Disorders: Yes Hx Hypertension: Yes - PULMONARY Hx Respiratory Disorders: No Other/Comment: Prior heavy smoker- X 40 years, Stopped 4 years ago, 1 Pk/day - NEUROLOGICAL Hx Neurological Disorder: No - HEENT Hx HEENT Problems: No Other/Comment: Wears corrective lenses for reading - RENAL Hx Chronic Kidney Disease: No - ENDOCRINE/METABOLIC Hx Endocrine Disorders: Yes Hx Diabetes Mellitus Type 1: Yes - HEMATOLOGICAL/ONCOLOGICAL Hx Blood Disorders: No Hx AIDS: No Hx Human Immunodeficiency Virus (HIV): No - INTEGUMENTARY Hx Dermatological Problems: No - MUSCULOSKELETAL/RHEUMATOLOGICAL Hx Musculoskeletal Disorders: No Hx Falls: No Other/Comment: C/o Low back pain - GASTROINTESTINAL Hx Gastrointestinal Disorders: No - GENITOURINARY/GYNECOLOGICAL Hx Genitourinary Disorders: No - PSYCHIATRIC Hx Psychophysiologic Disorder: No Hx Substance Use: No - SURGICAL HISTORY Hx Surgeries: Yes Hx Eye Surgery: Yes Hx Herniorrhaphy: Yes (left inguinal) - ANESTHESIA Hx Anesthesia: Yes Hx Anesthesia Reactions: No Meds Allergies/Adverse Reactions: Allergies Allergy/AdvReac Type Severity Reaction Status Date / Time No Known Allergies Allergy Verified 08/05/18 19:05 - Medications Medications: Current Medications Albuterol (Ventolin Hfa 90 Mcg/Actuation (8 G)) 2 puff IH Q4H [facility] Last Admin: 08/05/18 23:28 Dose: Not Given Alendronate Sodium (Fosamax) 35 mg PO [facility] Allopurinol (Zyloprim) 200 mg PO DAILY [facility] Last Admin: 08/06/18 08:52 Dose: 200 mg Aspirin (Ecotrin) 81 mg PO DAILY [facility] Last Admin: 08/06/18 08:45 Dose: 81 mg Atorvastatin Calcium (Lipitor) 40 mg PO HS [facility] Last Admin: 08/05/18 23:27 Dose: Not Given Ergocalciferol (Drisdol 50,000 Intl Units Cap) 1 cap PO Q28D [facility] Furosemide (Lasix) 20 mg PO MWF [facility] Last Admin: 08/06/18 08:49 Dose: 20 mg Home Med (Econazole 1% [Spectazole Cr]) 1 appl TOP BID [facility] Home Med (Paricalcitol [Zemplar]) 1 mcg PO MWF [facility] Hydrochlorothiazide (Hydrodiuril) 25 mg PO DAILY [facility] Last Admin: 08/06/18 08:48 Dose: 25 mg Insulin Detemir (Levemir) 60 units SC HS [facility] Last Admin: 08/05/18 23:26 Dose: 60 units Insulin Lispro Protam/Lispro Human (Humalog Mix 75/25) 60 units SC QPM [facility] Insulin Lispro Protam/Lispro Human (Humalog Mix 75/25) 70 units SC QAM [facility] Last Admin: 08/06/18 08:47 Dose: 70 units Latanoprost (Xalatan Opht) 1 drop OU HS [facility] Losartan Potassium (Cozaar) 100 mg PO DAILY [facility] Last Admin: 08/06/18 08:44 Dose: 100 mg Sevelamer Carbonate (Renvela) 800 mg PO DIN [facility] Sitagliptin Phosphate (Januvia) 50 mg PO DAILY [facility] Last Admin: 08/06/18 08:49 Dose: 50 mg Sodium Bicarbonate (Sodium Bicarbonate Tab) 650 mg PO DAILY [facility] Last Admin: 08/06/18 08:50 Dose: 650 mg Tamsulosin HCl (Flomax) 0.4 mg PO DAILY [facility] Last Admin: 08/06/18 08:46 Dose: 0.4 mg Vitamin D (Vitamin D 400 Intl Units Tab) 400 intlu PO DAILY [facility] Last Admin: 08/06/18 08:51 Dose: 400 intlu Physical Exam - Constitutional Appears: Well - Head Exam Head Exam: ATRAUMATIC, NORMAL INSPECTION, NORMOCEPHALIC - Eye Exam Eye Exam: EOMI, Normal appearance, PERRL Pupil Exam: NORMAL ACCOMODATION, PERRL - ENT Exam ENT Exam: Mucous Membranes Moist, Normal Exam - Neck Exam Neck exam: Positive for: Normal Inspection - Respiratory Exam Respiratory Exam: Clear to Auscultation Bilateral, NORMAL BREATHING PATTERN - Cardiovascular Exam Cardiovascular Exam: REGULAR RHYTHM, +S1, +S2 - GI/Abdominal Exam GI & Abdominal Exam: Normal Bowel Sounds, Soft. absent: Tenderness - Extremities Exam Extremities exam: Positive for: normal inspection - Back Exam Back exam: NORMAL INSPECTION - Neurological Exam Neurological exam: Alert, CN II-XII Intact, Normal Gait, Oriented x3, Reflexes Normal - Psychiatric Exam Psychiatric exam: Normal Affect, Normal Mood - Skin Skin Exam: Dry, Intact, Normal Color, Warm Results - Vital Signs Recent Vital Signs: Last Vital Signs Temp 97.9 F 08/06/18 15:53 Pulse 93 H 08/06/18 15:53 Resp 20 08/06/18 15:53 BP 139/70 08/06/18 15:53 Pulse Ox 96 08/06/18 15:53 - Labs Result Diagrams: 08/06/18 11:55 08/06/18 11:55 Labs: Laboratory Results - last 24 hr 08/05/18 08/05/18 08/05/18 17:20 18:18 18:18 WBC 5.9 RBC 3.79 L Hgb 11.9 L Hct 36.1 MCV 95.3 H D MCH 31.4 H MCHC 33.0 RDW 14.2 Plt Count 183 MPV 10.9 Neut % (Auto) 46.5 L Lymph % (Auto) 45.2 H [place] % (Auto) 5.5 Eos % (Auto) 2.5 Baso % (Auto) 0.3 Neut # (Auto) 2.8 Lymph # (Auto) 2.7 [place] # (Auto) 0.3 Eos # (Auto) 0.1 Baso # (Auto) 0.0 PT INR APTT Sodium 141 Potassium 4.6 Chloride 105 Carbon Dioxide 23 Anion Gap 18 BUN 34 H Creatinine 1.6 H Est GFR ( Amer) 52 Est GFR (Non-Af Amer) 43 POC Glucose (mg/dL) 134 H Random Glucose 119 H Calcium 9.5 Total Bilirubin 0.5 AST 53 ALT 63 Alkaline Phosphatase 55 Troponin I < 0.0120 NT-Pro-B Natriuret Pep 49.3 Total Protein 8.1 Albumin 3.9 Globulin 4.2 H Albumin/Globulin Ratio 0.9 L 08/05/18 08/05/18 08/06/18 18:18 21:14 05:20 WBC RBC Hgb Hct MCV MCH MCHC RDW Plt Count MPV Neut % (Auto) Lymph % (Auto) [place] % (Auto) Eos % (Auto) Baso % (Auto) Neut # (Auto) Lymph # (Auto) [place] # (Auto) Eos # (Auto) Baso # (Auto) PT 11.2 INR 1.0 APTT 28.0 Sodium Potassium Chloride Carbon Dioxide Anion Gap BUN Creatinine Est GFR ( Amer) Est GFR (Non-Af Amer) POC Glucose (mg/dL) 147 H 220 H Random Glucose Calcium Total Bilirubin AST ALT Alkaline Phosphatase Troponin I NT-Pro-B Natriuret Pep Total Protein Albumin Globulin Albumin/Globulin Ratio 08/06/18 08/06/18 08/06/18 10:39 11:55 11:55 WBC 6.9 RBC 3.80 L Hgb 12.0 Hct 35.7 MCV 93.9 MCH 31.7 H MCHC 33.8 RDW 14.1 Plt Count 200 MPV Neut % (Auto) Lymph % (Auto) [place] % (Auto) Eos % (Auto) Baso % (Auto) Neut # (Auto) Lymph # (Auto) [place] # (Auto) Eos # (Auto) Baso # (Auto) PT INR APTT Sodium 140 Potassium 4.6 Chloride 101 Carbon Dioxide 23 Anion Gap 21 H BUN 31 H Creatinine 1.5 Est GFR ( Amer) 56 Est GFR (Non-Af Amer) 46 POC Glucose (mg/dL) 249 H Random Glucose 239 H Calcium 10.0 Total Bilirubin AST ALT Alkaline Phosphatase Troponin I NT-Pro-B Natriuret Pep Total Protein Albumin Globulin Albumin/Globulin Ratio Assessment & Plan (1) Syncope Assessment and Plan: Based on the description provided, the patient may have had a seizure. I recommend obtaining an MRI of the brain with and without contrast. I also recommend EEG for 1 hour for further evaluation. Continue cardiac work-up and telemetry. Thank you for this consultation. Status: Acute
[2018-08-06] MEDS ORDERED: Gadodiamide 287 MG/ML VIAL (15ML) IV ONE (17:29)
[2018-08-06] MEDS ORDERED: Insulin Lispro Mix 75/25 100 units/ml (HumaLog) 10ml SC SCH (18:00)
[2018-08-06 20:04] VITALS: RESP 18
[2018-08-06] MEDS ORDERED: Patient's Own Med (Travoprost [Travatan Z] 1 DROP) EACHEYE SCH (22:00)
[2018-08-06] MEDS ORDERED: Latanoprost 0.005% Opht SOUTION OU SCH (22:00)
[2018-08-06] MEDS: Insulin Detemir 100 Units/ml Inj SC SCH (22:01)
--- NOTE | 2018-08-07 01:06 | CP.PCM.HP ---
History of Present Illness - History of Present Illness History of Present Illness: HPI: 68 y/o male with a PMH of HTN and DM presented to the ED S/P syncopal episode. As per history, pt was at the doctors office receiving an injection when he suddenly passed out and became incontinent of urine. PMH: HTN, DM, hyperlipidemia. PSH: Eye surgery, inguinal heniorrhaphy. Social History: previous heavy smoker. Meds: See MAR. Allergies: NKDA. Present on Admission - Present on Admission Any Indicators Present on Admission: No Review of Systems - Review of Systems Review of Systems: reviewed and no additional remarkable complaints. Past Patient History - Past Medical History & Family History Past Medical History?: Yes - Past Social History Smoking Status: Former Smoker - CARDIAC Hx Cardiac Disorders: Yes Hx Hypertension: Yes - PULMONARY Hx Respiratory Disorders: No Other/Comment: Prior heavy smoker- X 40 years, Stopped 4 years ago, 1 Pk/day - NEUROLOGICAL Hx Neurological Disorder: No - HEENT Hx HEENT Problems: No Other/Comment: Wears corrective lenses for reading - RENAL Hx Chronic Kidney Disease: No - ENDOCRINE/METABOLIC Hx Endocrine Disorders: Yes Hx Diabetes Mellitus Type 1: Yes - HEMATOLOGICAL/ONCOLOGICAL Hx Blood Disorders: No Hx AIDS: No Hx Human Immunodeficiency Virus (HIV): No - INTEGUMENTARY Hx Dermatological Problems: No - MUSCULOSKELETAL/RHEUMATOLOGICAL Hx Musculoskeletal Disorders: No Hx Falls: No Other/Comment: C/o Low back pain - GASTROINTESTINAL Hx Gastrointestinal Disorders: No - GENITOURINARY/GYNECOLOGICAL Hx Genitourinary Disorders: No - PSYCHIATRIC Hx Psychophysiologic Disorder: No Hx Substance Use: No - SURGICAL HISTORY Hx Surgeries: Yes Hx Eye Surgery: Yes Hx Herniorrhaphy: Yes (left inguinal) - ANESTHESIA Hx Anesthesia: Yes Hx Anesthesia Reactions: No Meds Allergies/Adverse Reactions: Allergies Allergy/AdvReac Type Severity Reaction Status Date / Time No Known Allergies Allergy Verified 08/05/18 19:05 Physical Exam - Constitutional Appears: Well - Head Exam Head Exam: ATRAUMATIC, NORMAL INSPECTION, NORMOCEPHALIC - Eye Exam Eye Exam: EOMI, Normal appearance, PERRL Pupil Exam: NORMAL ACCOMODATION, PERRL - ENT Exam ENT Exam: Mucous Membranes Moist - Neck Exam Neck exam: Positive for: Normal Inspection - Respiratory Exam Respiratory Exam: Decreased Breath Sounds - Cardiovascular Exam Cardiovascular Exam: REGULAR RHYTHM, +S1, +S2 - GI/Abdominal Exam GI & Abdominal Exam: Normal Bowel Sounds, Soft - Extremities Exam Extremities exam: Positive for: normal capillary refill, pedal edema Additional comments: 1+ pedal edema - Back Exam Back exam: NORMAL INSPECTION - Neurological Exam Neurological exam: Alert, CN II-XII Intact, Normal Gait, Oriented x3 - Psychiatric Exam Psychiatric exam: Normal Affect, Normal Mood - Skin Skin Exam: Dry, Intact, Normal Color, Warm Results - Vital Signs Recent Vital Signs: Last Vital Signs Temp 98.5 F 08/07/18 00:25 Pulse 85 08/07/18 00:25 Resp 18 08/07/18 00:25 BP 122/65 08/07/18 00:25 Pulse Ox 98 08/07/18 00:25 - Labs Result Diagrams: 08/06/18 11:55 08/06/18 11:55 Labs: Laboratory Results - last 24 hr 08/06/18 08/06/18 08/06/18 05:20 10:39 11:55 WBC 6.9 RBC 3.80 L Hgb 12.0 Hct 35.7 MCV 93.9 MCH 31.7 H MCHC 33.8 RDW 14.1 Plt Count 200 Sodium Potassium Chloride Carbon Dioxide Anion Gap BUN Creatinine Est GFR ( Amer) Est GFR (Non-Af Amer) POC Glucose (mg/dL) 220 H 249 H Random Glucose Calcium 08/06/18 08/06/18 08/06/18 11:55 16:04 21:55 WBC RBC Hgb Hct MCV MCH MCHC RDW Plt Count Sodium 140 Potassium 4.6 Chloride 101 Carbon Dioxide 23 Anion Gap 21 H BUN 31 H Creatinine 1.5 Est GFR ( Amer) 56 Est GFR (Non-Af Amer) 46 POC Glucose (mg/dL) 101 131 H Random Glucose 239 H Calcium 10.0 - EKG Data EKG Interpreted by: Myself EKG shows normal: Sinus rhythm Rate: Normal Assessment & Plan (1) Syncope Assessment and Plan: Assessment/Impression/Major problems now: 1.) Syncope -ECHO and bilateral carotid ultrasound ordered. -Neurology and cardiology consults input appreciated. -consider seizure vs. syncope. -Head CT showed no CVA; mostly chronic ischemic changes. -neuro checks and cardiac monitoring ongoing. Status: Acute
--- NOTE | 2018-08-07 05:40 | CON ---
DATE: 08/06/2018 REASON FOR CONSULTATION: Syncopal episode. HISTORY OF PRESENT ILLNESS: History was obtained from the family and from the patient via computer programming manager. The patient is a 68-year-old male who has a history of hypertension and diabetes mellitus, who was seeing an center medical specialist, and after having eye drops to dilate his pupils and received unknown intravenous injection, and while in the waiting room, the patient was reported by the office staff to be shaky and slumped to the floor, was initially confused and had urinary incontinence. By the time, the family arrived to the emergency room, the ambulance was there to pick the patient up, and the patient was oriented and aware of what was going on. No prior similar episode, and NO KNOWN HISTORY OF ALLERGY TO EITHER FOOD OR MEDICINE. The patient is also being seen by a aligner typewriter, that the patient and the family do not recall his name, but unaware of any specific cardiac issue and no history of cardiac catheterization. There is no history of stroke in the past. SOCIAL HISTORY: Nonsmoker and nondrinker. and lives with his . MEDICATIONS: Aspirin 81 mg once a day, Fosamax 35 mg weekly; Flomax 0.4 mg daily; hydrochlorothiazide 25 mg once a day; Januvia 50 mg once a day; Lasix 20 mg Saturday, Saturday, and Saturday; Levemir 6 units subcutaneously at bedtime; Lipitor 40 mg once a day; Renvela 800 mg at dinnertime; vitamin D 400 international units orally daily; and Zyloprim 200 mg daily. REVIEW OF SYSTEMS: The patient had recent cataract surgery. He denies any history of heart attack or stroke in the past, and no known history of seizures. PHYSICAL EXAMINATION: GENERAL: The patient is an elderly male who does not appear to be in acute distress. VITAL SIGNS: Blood pressure 139/70, heart rate 93, temperature 97.9, respirations 20. HEENT: Normocephalic. CHEST: Clear. HEART: S1 and S2, regular. ABDOMEN: Soft. EXTREMITIES: No edema. LABORATORY DATA: Today's SMA-7: Sodium 140, potassium 4.6, chloride 101, CO2 of 23, glucose 139, BUN 31, creatinine 1.5. One set of troponin is negative. Today's hemoglobin and hematocrit, white count and platelets count are within normal limits. PT, PTT and INR are within normal limits. Head CT scan without contrast: I suspect minimal chronic periventricular white matter ischemic changes. Ill-defined low attenuation changes seen in the subcortical white matter of the left posterior temporoparietal region. These changes are likely chronic, however, clinical correlation recommended. [id number] generalized volume loss. . Echocardiographic study with normal ejection fraction, borderline dilated left atrium, trivial tricuspid insufficiency, and grade 1 abnormal relaxation pattern. Carotid Doppler: No evidence of hemodynamically significant carotid artery stenoses bilaterally. EKG revealed normal sinus rhythm at a rate of 96. ASSESSMENT: 1. Syncopal episode. 2. Rule out transient ischemic attack versus cerebrovascular accident. 3. Hypertension and diabetes mellitus. 4. Borderline renal insufficiency. 5. History of diabetic retinopathy. RECOMMENDATIONS: Continue Cozaar 100 mg once a day; aspirin 81 mg once a day; hydrochlorothiazide 25 mg daily; Lasix 20 mg Saturday, Saturday, and Saturday; and Zyloprim at 200 mg daily. I will follow the brain MRI report that was performed today. I requested from the family to obtain the outpatient aligner typewriter's name and office phone number to obtain any pertinent cardiac information from them. Dre Vasquez MD
[2018-08-07] MEDS ORDERED: ALENDRONATE 70 MG TAB PO SCH (09:00)
[2018-08-07] MEDS: Insulin Lispro Mix 75/25 100 units/ml (HumaLog) 10ml SC SCH (09:16)
[2018-08-07] MEDS: Cholecalciferol 400 Intl Units Tab PO SCH (09:19)
--- NOTE | 2018-08-07 09:51 | MRI ---
Date of service: 08/06/2018 PROCEDURE: MRI BRAIN WITH AND WITHOUT CONTRAST HISTORY: syncope COMPARISON: Noncontrast head CT 08/05/2018. TECHNIQUE: Multiplanar, multisequence MR images of the brain were obtained with and without intravenous contrast enhancement (Omniscan 10 cc). FINDINGS: HEMORRHAGE: None DWI: No evidence of an acute or early subacute infarction. BRAIN PARENCHYMA: Good corticomedullary differentiation is seen. Proportional, diffuse expansion of the ventriculosulcal and cisternal spaces is appreciated with white matter signal changes compatible with diffuse cerebral atrophy and chronic microangiopathy. No suspicious extra-axial fluid collection is identified and the midline brain anatomy appears grossly nonfocal as imaged. There is no mass effect throughout. ENHANCEMENT: No abnormal intracranial enhancement. VENTRICLES: Unremarkable. No hydrocephalus. CRANIUM: Unremarkable. ORBITS: Grossly unremarkable. PARANASAL SINUSES/MASTOIDS: Extensive left mastoid effusions identified. VASCULAR SYSTEM: Skull base flow voids intact. OTHER FINDINGS: None . IMPRESSION: Age-related neuro degenerative change are identified comprised of diffuse cerebral atrophy chronic microangiopathy involving the cerebrum. No abnormal intracranial enhancement identified. Left mastoid effusions noted. Preliminary report provided by Lavelle, 08/06/2018, 7:18 p.m.. Incidental left mastoid effusions noted.
--- NOTE | 2018-08-07 10:29 | CP.PCM.PN ---
Subjective - Date & Time of Evaluation Date of Evaluation: 08/07/18 Time of Evaluation: 10:26 - Subjective Subjective: Neuro Follow-Up: Mr. Nix was evaluated this morning at bedside. present. Pt states he is feeling well and is eager to be d/c home today. He denies any further episodes of near syncope and syncope. He denies h/a, dizziness, visual changes, chest pain, palpitations, sob, abd pain, n/v/d. Objective - Vital Signs/Intake and Output Vital Signs (last 24 hours): Temp Pulse Resp BP Pulse Ox 98 F 79 18 127/72 95 08/07/18 08:18 08/07/18 09:13 08/07/18 08:18 08/07/18 09:13 08/07/18 08:18 - Medications Medications: Current Medications Albuterol (Ventolin Hfa 90 Mcg/Actuation (8 G)) 2 puff IH Q4H [facility] Last Admin: 08/06/18 19:14 Dose: Not Given Alendronate Sodium (Fosamax) 35 mg PO Th [facility] Last Admin: 08/07/18 09:21 Dose: 35 mg Allopurinol (Zyloprim) 200 mg PO DAILY [facility] Last Admin: 08/07/18 09:20 Dose: 200 mg Aspirin (Ecotrin) 81 mg PO DAILY [facility] Last Admin: 08/07/18 09:14 Dose: 81 mg Atorvastatin Calcium (Lipitor) 40 mg PO HS [facility] Last Admin: 08/06/18 22:02 Dose: 40 mg Ergocalciferol (Drisdol 50,000 Intl Units Cap) 1 cap PO Q28D [facility] Furosemide (Lasix) 20 mg PO MWF [facility] Last Admin: 08/06/18 08:49 Dose: 20 mg Hydrochlorothiazide (Hydrodiuril) 25 mg PO DAILY [facility] Last Admin: 08/07/18 09:15 Dose: 25 mg Insulin Detemir (Levemir) 60 units SC HS [facility] Last Admin: 08/06/18 22:01 Dose: 60 units Insulin Lispro Protam/Lispro Human (Humalog Mix 75/25) 60 units SC QPM [facility] Last Admin: 08/06/18 17:36 Dose: Not Given Insulin Lispro Protam/Lispro Human (Humalog Mix 75/25) 70 units SC QAM [facility] Last Admin: 08/07/18 09:16 Dose: 70 units Latanoprost (Xalatan Opht) 1 drop OU HS [facility] Last Admin: 08/06/18 22:01 Dose: 1 drop Losartan Potassium (Cozaar) 100 mg PO DAILY [facility] Last Admin: 08/07/18 09:13 Dose: 100 mg Sevelamer Carbonate (Renvela) 800 mg PO DIN [facility] Last Admin: 08/06/18 17:37 Dose: 800 mg Sitagliptin Phosphate (Januvia) 50 mg PO DAILY [facility] Last Admin: 08/07/18 09:15 Dose: 50 mg Sodium Bicarbonate (Sodium Bicarbonate Tab) 650 mg PO DAILY [facility] Last Admin: 08/07/18 09:18 Dose: 650 mg Tamsulosin HCl (Flomax) 0.4 mg PO DAILY [facility] Last Admin: 08/07/18 09:14 Dose: 0.4 mg Vitamin D (Vitamin D 400 Intl Units Tab) 400 intlu PO DAILY [facility] Last Admin: 08/07/18 09:19 Dose: 400 intlu - Labs Labs: 08/06/18 11:55 08/06/18 11:55 PT 11.2 Seconds (9.8-13.1) 08/05/18 18:18 INR 1.0 08/05/18 18:18 APTT 28.0 Seconds (25.6-37.1) 08/05/18 18:18 - Constitutional Appears: Well, Non-toxic, No Acute Distress - Head Exam Head Exam: ATRAUMATIC, NORMAL INSPECTION, NORMOCEPHALIC - Eye Exam Eye Exam: EOMI, Normal appearance, PERRL Pupil Exam: NORMAL ACCOMODATION, PERRL - ENT Exam ENT Exam: Mucous Membranes Moist - Neck Exam Neck Exam: Full ROM, Normal Inspection - Respiratory Exam Respiratory Exam: NORMAL BREATHING PATTERN - Extremities Exam Extremities Exam: Full ROM, Normal Inspection. absent: Calf Tenderness, Pedal Edema - Neurological Exam Neurological Exam: Alert, Awake, CN II-XII Intact, Normal Gait, Oriented x3, Reflexes Normal Neuro motor strength exam: Left Upper Extremity: 5, Right Upper Extremity: 5, Left Lower Extremity: 5, Right Lower Extremity: 5 - Skin Skin Exam: Normal Color Assessment and Plan (1) Syncope Assessment & Plan: Imaging reviewed: -Brain MRI (08/06/18): Age-related neuro degenerative change are identified comprised of diffuse cerebral atrophy chronic microangiopathy involving the cerebrum. No abnormal intracranial enhancement identified. Left mastoid effusions noted. Incidental left mastoid effusions noted. -Carotid U/S (08/06/18): No evidence of hemodynamically significant carotid arterial stenosis bilaterally. (Less than 15 percent stenosis by NASCET criteria ). -ECHO (08/05/18): EF 60-65% -CT head (08/05/18): Suspect minimal chronic periventricular white matter ischemic changes. There are ill-defined low-attenuation changes seen in the subcortical white matter left posterior temporoparietal region.. These changes likely chronic however clinical correlation recommended to determine whether additional imaging such as MRI should is required. Mild to moderate generalized volume loss. Questionable fluid levels or mucoperiosteal inflammatory changes noted within multiple left-sided mastoid air cells. -EEG: normal -Fall precautions. -PT/OT -Cardiology on the case (Dr. Vasquez). -Pt is neurologically stable for d/c. He has an appt with his aerospace assembler on 08/11/18, already scheduled. He is to also f/u with his PMD. -reconsult prn. Thank you for allowing us to participate in this pt's care. Elvie Esquivel, YOSELIN, OFFICE EXECUTIVE Discussed with Dr. Geronimo Status: Acute
--- NOTE | 2018-08-07 11:38 | PCM.EEG ---
Electroencephalogram Report - Electroencephalogram Report Procedure Date: 08/06/18 Diagnosis for Pathology: SYNCOPE AND COLLAPSE Medication: Allopurinol, ASA, Atorvastatin Interpretation: Technical Information: This was a 16 -channel EEG, 1-channel EKG routine EEG performed using an [employer] machine. Electrodes were applied using the 10/20 international placement system. Start; 20;47 End; 21;38 Total 51 min Clinical Information: syncope During resting wakefulness there was a symmetric posterior dominant rhythm at 8.5-9.5 Hz, 30-50 uV, which was reactive to eye opening and closing. Drowsiness (21;02) was associated with fragmentation of the posterior dominant rhythm and with slow roving eye movements. Light sleep was not recorded. Hyperventilation was not performed. Photic stimulation was performed and there were no changes on the record. Focal abnormality; none ECG was associated with a normal sinus rhythm. Impression: This is a normal awake and drowsy electroencephalogram.
[2018-08-07 12:25] VITALS: BP 138/71; PULSE 89; TEMP 97.9; O2SAT 96
[2018-08-07] MEDS: Albuterol HFA 90 mcg/actuation (8 g) IH SCH ×2 (12:41→15:42)
--- NOTE | 2018-08-07 15:24 | CP.PCM.DIS ---
Provider - Provider Date of Admission: 08/05/18 19:07 Attending physician: Mason Rajput MD Consults: 08/06/18 09:47 Cardiology Consult Routine Comment: Consulting Provider: Dre Vasquez Consulting Physician: Dre Vasquez Reason for Consult: syncope Neurology Consult Routine Comment: Consulting Provider: Carter Geronimo Consulting Physician: Carter Geronimo Reason for Consult: syncope; hx htn, dm, had episode LOC at md office Time Spent in preparation of Discharge (in minutes): 30 Diagnosis - Discharge Diagnosis (1) Syncope Status: Acute Hospital Course - Lab Results Lab Results: Most Recent Lab Values WBC 6.9 K/uL (4.8-10.8) 08/06/18 11:55 RBC 3.80 Mil/uL (4.40-5.90) L 08/06/18 11:55 Hgb 12.0 g/dL (12.0-18.0) 08/06/18 11:55 Hct 35.7 % (35.0-51.0) 08/06/18 11:55 MCV 93.9 fl (80.0-94.0) 08/06/18 11:55 MCH 31.7 pg (27.0-31.0) H 08/06/18 11:55 MCHC 33.8 g/dL (33.0-37.0) 08/06/18 11:55 RDW 14.1 % (11.5-14.5) 08/06/18 11:55 Plt Count 200 K/uL (130-400) 08/06/18 11:55 MPV 10.9 fl (7.2-11.7) 08/05/18 18:18 Neut % (Auto) 46.5 % (50.0-75.0) L 08/05/18 18:18 Lymph % (Auto) 45.2 % (20.0-40.0) H 08/05/18 18:18 [place] % (Auto) 5.5 % (0.0-10.0) 08/05/18 18:18 Eos % (Auto) 2.5 % (0.0-4.0) 08/05/18 18:18 Baso % (Auto) 0.3 % (0.0-2.0) 08/05/18 18:18 Neut # (Auto) 2.8 K/uL (1.8-7.0) 08/05/18 18:18 Lymph # (Auto) 2.7 K/uL (1.0-4.3) 08/05/18 18:18 [place] # (Auto) 0.3 K/uL (0.0-0.8) 08/05/18 18:18 Eos # (Auto) 0.1 K/uL (0.0-0.7) 08/05/18 18:18 Baso # (Auto) 0.0 K/uL (0.0-0.2) 08/05/18 18:18 PT 11.2 Seconds (9.8-13.1) 08/05/18 18:18 INR 1.0 08/05/18 18:18 APTT 28.0 Seconds (25.6-37.1) 08/05/18 18:18 Sodium 140 mmol/l (132-148) 08/06/18 11:55 Potassium 4.6 MMOL/L (3.6-5.0) 08/06/18 11:55 Chloride 101 mmol/L (98-107) 08/06/18 11:55 Carbon Dioxide 23 mmol/L (22-30) 08/06/18 11:55 Anion Gap 21 (10-20) H 08/06/18 11:55 BUN 31 mg/dl (9-20) H 08/06/18 11:55 Creatinine 1.5 mg/dl (0.8-1.5) 08/06/18 11:55 Est GFR ( Amer) 56 08/06/18 11:55 Est GFR (Non-Af Amer) 46 08/06/18 11:55 POC Glucose (mg/dL) 292 mg/dL (65-110) H 08/07/18 10:56 Random Glucose 239 mg/dL (75-110) H 08/06/18 11:55 Calcium 10.0 mg/dL (8.4-10.2) 08/06/18 11:55 Total Bilirubin 0.5 mg/dl (0.2-1.3) 08/05/18 18:18 AST 53 U/L (17-59) 08/05/18 18:18 ALT 63 U/L (21-72) 08/05/18 18:18 Alkaline Phosphatase 55 U/L (38-126) 08/05/18 18:18 Troponin I < 0.0120 ng/mL (0.00-0.120) 08/05/18 18:18 NT-Pro-B Natriuret Pep 49.3 pg/ml (0-900) 08/05/18 18:18 Total Protein 8.1 G/DL (6.3-8.2) 08/05/18 18:18 Albumin 3.9 g/dL (3.5-5.0) 08/05/18 18:18 Globulin 4.2 gm/dL (2.2-3.9) H 08/05/18 18:18 Albumin/Globulin Ratio 0.9 (1.0-2.1) L 08/05/18 18:18 - Hospital Course Hospital Course: 68 y/o male with a PMH of HTN and DM presented to the ED S/P syncopal episode. As per history, pt was at the doctors office receiving an injection when he suddenly passed out and became incontinent of urine. Patient was admitted and evaluated by neurology and cardiology. EEG performed, normal. Patient was cleared by both specialists with follow up in 1 week. Discharge Exam - Head Exam Head Exam: ATRAUMATIC, NORMAL INSPECTION, NORMOCEPHALIC - Eye Exam Eye Exam: Normal appearance - Respiratory Exam Respiratory Exam: NORMAL BREATHING PATTERN - Cardiovascular Exam Cardiovascular Exam: +S1, +S2 - GI/Abdominal Exam GI & Abdominal Exam: Unremarkable - Neurological Exam Neurological exam: Alert, Oriented x3 - Psychiatric Exam Psychiatric exam: Normal Affect, Normal Mood - Skin Skin Exam: Normal Color, Warm Discharge Plan - Follow Up Plan Condition: STABLE Disposition: HOME/ ROUTINE Instructions: Syncope (Fainting) (DC) Additional Instructions: follow up with and Dr. Breaux in 1 week Referrals: Kian Rhodes MD [Family Provider] - Jay Breaux MD [Medical Doctor] -
--- NOTE | 2018-08-07 20:48 | PN ---
DATE: 08/07/2018 FOLLOWUP SUBJECTIVE: The patient denies any dizziness or headache. No retrosternal chest pain. No palpitation. No reported arrhythmia. PHYSICAL EXAMINATION: VITAL SIGNS: Blood pressure 138/71, heart rate 89, temperature 97.9, respirations 18. HEENT: Normocephalic. CHEST: Clear. HEART: S1 and S2, regular. EXTREMITIES: No edema. LABORATORY DATA: Today's blood sugars are 172 and 292. EEG: Normal awake and drowsy EEG. Brain MRI: Age related neurodegenerative diseases identified. Less mastoid effusion noted. No abnormal intracranial enhancement noted. ASSESSMENT: 1. Syncopal episode. 2. Rule out transient ischemic attack. 3. Hypertension and diabetes mellitus. 4. Borderline troponin elevation. 5. History of diabetic retinopathy. RECOMMENDATIONS: The patient can be discharged from the cardiac point of view and will follow with his own tester sound. It will be helpful to know the name of the injection that was administered to the patient in his tray delivery aide's office and avoid in future medications of that class in any other location. Dre Vasquez MD
== END 2018-08-07 15:20 | disposition home or self-care (01) ==
LOC: H.ER 17:04 → H.ERHOLD 19:07 → H.TEL 20:47
PROVIDERS: ADMIT Family Medicine; ATTEND Family Medicine
DX: R55 Syncope and collapse (principal); E86.0 Dehydration; E11.65 Type 2 diabetes mellitus with hyperglycemia; R32 Unspecified urinary incontinence; I10 Essential (primary) hypertension; E11.51 Type 2 diabetes mellitus with diabetic peripheral angiopathy without gangrene; E11.319 Type 2 diabetes mellitus with unspecified diabetic retinopathy without macular edema; E78.5 Hyperlipidemia, unspecified; M54.5 Low back pain; Z79.4 Long term (current) use of insulin; Z79.84 Long term (current) use of oral hypoglycemic drugs; Z79.82 Long term (current) use of aspirin; Z79.83 Long term (current) use of bisphosphonates; Z87.891 Personal history of nicotine dependence
CPT/HCPCS: 36415; 70450; 70553; 71045; 80048; 80053; 82948; 83880; 84484; 85025; 85027; 85610; 85730; 93005; 93306; 93880; 96360; 99285; A9579; G0378; J7030